=== PATIENT | female | born 1950 | race Caucasian/White ===

== ENCOUNTER → 2024-05-03 07:09 | Outpatient (REF) | payer OTHER, SELFPAY | LOC: WDC 07:09 | PROVIDERS: ATTENDING PHYSICIAN Family Medicine | DX: Z12.31 Encounter for screening mammogram for malignant neoplasm of breast (principal) | CPT/HCPCS: 77063; 77067 ==

== ENCOUNTER → 2025-05-09 06:30 | Outpatient (REF) | payer OTHER, SELFPAY | LOC: WDC 06:30 | PROVIDERS: ATTENDING PHYSICIAN Family Medicine | DX: Z12.31 Encounter for screening mammogram for malignant neoplasm of breast (principal) | CPT/HCPCS: 77063; 77067 ==

== ENCOUNTER → 2025-08-01 08:49 | Outpatient (REF) | payer OTHER, SELFPAY | LOC: RAD 08:49 | PROVIDERS: ATTENDING PHYSICIAN Nurse Practitioner Family; FAMILY PHYSICIAN Family Medicine | DX: N81.0 Urethrocele (principal) | CPT/HCPCS: 76830; 76856 ==

== ENCOUNTER 2025-09-28 08:53 | Outpatient (RCR) | payer OTHER, SELFPAY | END 2025-09-28 23:59 | disposition home or self-care (01) | LOC: RPT 08:53 | PROVIDERS: ATTENDING PHYSICIAN Nurse Practitioner Family; FAMILY PHYSICIAN Family Medicine | DX: N81.4 Uterovaginal prolapse, unspecified (principal); Z73.6 Limitation of activities due to disability | CPT/HCPCS: 97014; 97110; 97112; 97163; 97530 ==

== ENCOUNTER 2025-11-03 06:54 | Outpatient (RCR) | payer OTHER, SELFPAY | END 2025-11-03 23:59 | disposition home or self-care (01) | LOC: RPT 06:54 | PROVIDERS: ATTENDING PHYSICIAN Nurse Practitioner Family; FAMILY PHYSICIAN Family Medicine | DX: N81.4 Uterovaginal prolapse, unspecified (principal); Z73.6 Limitation of activities due to disability | CPT/HCPCS: 97014; 97110; 97112; 97530 ==